=== PATIENT | female | born 1975 | race American Indian/Alaskan Native ===

== ENCOUNTER 2018-06-01 07:16 | Day surgery (SDC) | payer OTHER ==
[2018-06-01] MEDS ORDERED: DILAUDID IV PRN (07:25)
[2018-06-01] MEDS ORDERED: VERSED IV NR (08:00)
[2018-06-01] MEDS ORDERED: NACL 0.9% 1000 ML 1,000 ML IV SCH ×2 (08:00→10:00)
[2018-06-01] MEDS ORDERED: ANCEF/STERILE WATER 2 GM/20 ML IV NR (08:10)
[2018-06-01] MEDS ORDERED: NACL BACTERIOSTATIC INFILTRATI ONE (08:34)
[2018-06-01 09:07] LABS: Hematocrit 34.1 % (30.3-42.9); Hemoglobin 11.4 gm/dl (10.1-14.3)
--- NOTE | 2018-06-01 09:09 | Anesthesia Day of Surgery ---
Anesthesia Day of Surgery - Day of Surgery Patient Examined: Yes Patient H&P Reviewed: Yes Patient is NPO: Yes
--- NOTE | 2018-06-01 09:10 | Anesthesia Consultation ---
Anesthesia Consult and Med Hx Date of service: 06/01/18 - Airway Anesthetic Teeth Evaluation: Good ROM Head & Neck: Adequate Mental/Hyoid Distance: Adequate Mallampati Class: Class I Intubation Access Assessment: Good - Pulmonary Exam CTA: Yes - Cardiac Exam Cardiac Exam: RRR - Pre-Operative Health Status ASA Pre-Surgery Classification: ASA2 Proposed Anesthetic Plan: General (Ga with LMA ok) - Pulmonary Hx Smoking: No Hx Sleep Apnea: No (ANN PRE SCREEN LOW RISK) - Cardiovascular System Hx Hypertension: (IRREGULAR MEDS) - Hematic Hx Anemia: Yes Hx Sickle Cell Disease: No (SC TRAIT ONLY) - Other Systems Hx Cancer: No
[2018-06-01] MEDS ORDERED: SUBLIMAZE ONE (09:18)
[2018-06-01] MEDS ORDERED: DIPRIVAN 10 MG/ML IV ONE (09:18)
--- NOTE | 2018-06-01 09:36 | XRay Report ---
AP ABDOMEN: HISTORY: Kidney stone. No comparison. Right nephrolithiasis is suspected. A 1 cm calcification overlies the expected position of the right renal pelvis. A 4 mm calcification overlies the mid right kidney. There appeared to be multiple punctate calcifications overlying the superior pole of the right kidney. The left renal shadow is not confidently identified, correlate with surgical history. Multiple pelvic phleboliths are noted. The bowel gas pattern is unremarkable. IMPRESSION: Right nephrolithiasis.
--- NOTE | 2018-06-01 09:41 | Post Operative Note ---
Date of procedure: 06/01/18 Pre-op diagnosis: r renal stones Post-op diagnosis: same Findings: as above Procedure: r eswl Anesthesia: LUISA Surgeon: NIDHI BRADFORD Estimated blood loss: none Pathology: none Condition: stable Disposition: PACU
--- NOTE | 2018-06-01 09:42 | Discharge Summary ---
Short Stay Discharge Plan Activity: other (no straining ) Weight Bearing Status: Full Weight Bearing Diet: regular Special Instructions: other (inc fluids ) Follow up with: ISABELLA GEORGES MD [Primary Care Provider] - 7 Days NIDHI BRADFORD MD [Staff Physician] - 7 Days
[2018-06-01] MEDS ORDERED: ePHEDrine 50 MG/5 ML-0.9% NACL IV ONE (09:49)
[2018-06-01] MEDS ORDERED: ZOFRAN ONE (09:55)
[2018-06-01] MEDS ORDERED: NEO SYNEPHRINE/NS Syringe(OR USE) IV ONE (09:55)
[2018-06-01] MEDS ORDERED: XYLOCAINE MPF 2% ONE (09:55)
--- NOTE | 2018-06-01 10:41 | Operative Report ---
PREOPERATIVE DIAGNOSES: Right renal stone, previous ureteral stone which was treated by Dr. Anderson. POSTOPERATIVE DIAGNOSES: Right renal stone, previous ureteral stone which was treated by Justin. PROCEDURE: Right ESWL. SURGEON: Terrence Bains MD ANESTHESIA: General. FINDINGS: This is a woman with a large 1 cm stone of right kidney. She has had history of stones. She has bilateral stones. She now presents for lithotripsy on the right side. DESCRIPTION OF PROCEDURE: The patient was brought to the operating room and placed on the operating table. Following induction of anesthesia, the stone was well localized on both the AP and oblique images. Shocks were begun at 1 kV, increased to maximum of 5 kV. A total of 2500 shocks were given. The patient tolerated the procedure well and looked to be fragmenting well. She tolerated this well, brought to recovery in stable condition. JOB# [id number] LILA/AMY
[2018-06-01 12:06] VITALS: BP 126/78
--- NOTE | 2018-06-01 14:28 | Post Anesthesia Evaluation ---
- Post Anesthesia Evaluation Patient Participated: Yes Airway Patent: Yes Stable Respiratory Function: Yes Nausea/Vomiting: No Temp > 96.8F: Yes Pain Manageable: Yes Adequeate Hydration: Yes Anesthesia Complications: No
== END 2018-06-01 11:57 | disposition home or self-care (01) ==
LOC: OR 07:16
PROVIDERS: ATTEND Urology
DX: N20.0 Calculus of kidney (principal); I10 Essential (primary) hypertension; Z88.2 Allergy status to sulfonamides; Z88.1 Allergy status to other antibiotic agents; Z98.891 History of uterine scar from previous surgery; Z87.442 Personal history of urinary calculi; Z98.890 Other specified postprocedural states
CPT/HCPCS: 36415; 50590; 74018; 81025; 85014; 85018; J0690; J2250; J2370; J2405; J2704; J7030; J3010